=== PATIENT | female | born 1975 | race Caucasian/White ===

== ENCOUNTER 2018-11-23 19:34 | Emergency (ER) | payer OTHER ==
[~2018-11-23] VITALS: Ht 157.5 cm; Wt 89.8 kg
[2018-11-23 19:52] VITALS: BP 115/73; Ht 157.5 cm; Wt 89.8 kg
== END 2018-11-23 21:00 | disposition home or self-care (01) ==
LOC: ED 19:34
DX: S76.011A Strain of muscle, fascia and tendon of right hip, initial encounter (principal); W18.2XXA Fall in (into) shower or empty bathtub, initial encounter; Y93.89 Activity, other specified; Y92.89 Other specified places as the place of occurrence of the external cause; Y99.8 Other external cause status
CPT/HCPCS: J1885